=== PATIENT | male | born 1935 | race African-American/Black ===

== ENCOUNTER 2019-02-18 12:46 | Emergency (ER) | payer OTHER ==
[~2019-02-18] VITALS: Ht 180.3 cm; Wt 86.0 kg
[2019-02-18 14:21] LABS: BASOPHILS % 0.9 % (0.0-2.0); EOSINOPHILS % 2.5 % (0.0-5.0); HEMOGLOBIN. 11.7 g/dL (14.0-18.0); MEAN CORPUSCULAR HEMOGLOBIN 29.4 pg (28.0-32.0); MEAN CORPUSCULAR VOLUME 88.2 fL (80.0-94.0); MEAN PLATELET VOLUME 7.8 fl (7.4-10.4); MONOCYTES % 8.9 % (2.0-8.0); NEUTROPHILS % 60.7 % (40.0-76.0); PLATELET 177 x1000/uL (130-400); RED BLOOD CELL COUNT 3.97 mill/uL (4.7-6.1); RED CELL DISTRIBUTION WIDTH 13.6 % (11.6-14.6)
[2019-02-18 14:26] LABS: CHLORIDE 111 mEq/L (98-107)
[2019-02-18 14:33] LABS: PROTHROMBIN TIME 43.5 sec (9.6-11.0)
[2019-02-18 14:44] LABS: INR 4.5
[2019-02-18 15:00] VITALS: BP_SYST 187
[2019-02-18 16:20] VITALS: BP_DIAS 80
== END 2019-02-18 16:51 | disposition home or self-care (01) ==
LOC: ER 12:46
DX: R04.0 Epistaxis (principal); E11.9 Type 2 diabetes mellitus without complications; I10 Essential (primary) hypertension; Z79.01 Long term (current) use of anticoagulants; Z86.718 Personal history of other venous thrombosis and embolism
CPT/HCPCS: 36415; 71045; 82962; 93005; 99284